=== PATIENT | female | born 1975 | race Caucasian/White ===

== ENCOUNTER → 2017-12-27 | Outpatient (CLI) | payer BC | LOC: MC.RAD 13:40 | DX: Z12.31 Encounter for screening mammogram for malignant neoplasm of breast (principal) ==

== ENCOUNTER → 2021-06-22 | Outpatient (CLI) | payer BC | LOC: MC.RAD 06-20 13:30 | DX: Z12.31 Encounter for screening mammogram for malignant neoplasm of breast (principal) ==